=== PATIENT | female | born 1990 | race African-American/Black ===

== ENCOUNTER 2019-05-29 08:00 | Outpatient (CLI) | payer OTHER ==
[2019-05-30 17:54] LABS: CANDIDA GROUP DNA POSITIVE (NEGATIVE); CANDIDA KRUSEI DNA NEGATIVE (NEGATIVE); TRICHOMONAS VAGINALIS DNA NEGATIVE (NEGATIVE)
[2019-05-30 19:03] LABS: TRICHOMONAS VAGINALIS DNA NEGATIVE (NEGATIVE)
== END 2019-05-29 23:59 | disposition home or self-care (01) ==
LOC: LAB.R 08:00
PROVIDERS: ATTEND Obstetrics & Gynecology
DX: Z11.3 Encounter for screening for infections with a predominantly sexual mode of transmission (principal); R10.2 Pelvic and perineal pain
CPT/HCPCS: 87491; 87591; 87661; 87801

== ENCOUNTER 2019-06-21 08:00 | Outpatient (CLI) | payer OTHER | END 2019-06-21 23:59 | disposition home or self-care (01) | LOC: LAB.WCP 08:00 | PROVIDERS: ATTEND Physician Assistant Medical | DX: E05.90 Thyrotoxicosis, unspecified without thyrotoxic crisis or storm (principal) | CPT/HCPCS: 36415; 84443 ==

== ENCOUNTER 2019-08-15 16:46 | Outpatient (CLI) | payer OTHER ==
[2019-08-15 22:17] LABS: CANDIDA GROUP DNA NEGATIVE (NEGATIVE); CANDIDA KRUSEI DNA NEGATIVE (NEGATIVE); TRICHOMONAS VAGINALIS DNA NEGATIVE (NEGATIVE)
== END 2019-08-15 23:59 | disposition home or self-care (01) ==
LOC: LAB.R 16:46
PROVIDERS: ATTEND Obstetrics & Gynecology
DX: B37.3 Candidiasis of vulva and vagina (principal)
CPT/HCPCS: 87661; 87801

== ENCOUNTER 2019-11-06 12:33 | Outpatient (CLI) | payer OTHER ==
[2019-11-06 19:10] LABS: FREE T3 3.97 pg/mL (2.5-3.9)
[2019-11-06 19:11] LABS: THYROID STIMULATING HORMONE 1.08 uIU/mL (0.34-5.60)
[2019-11-06 19:12] LABS: FREE T4 (FREE THYROXINE) 0.68 ng/dL (0.58-1.64)
== END 2019-11-06 23:59 | disposition home or self-care (01) ==
LOC: LAB.WCP 12:33
PROVIDERS: ATTEND Nurse Practitioner
DX: E05.90 Thyrotoxicosis, unspecified without thyrotoxic crisis or storm (principal); R11.0 Nausea
CPT/HCPCS: 36415; 84439; 84443; 84481; 84702

== ENCOUNTER 2020-01-08 13:12 | Outpatient (CLI) | payer OTHER ==
[2020-01-08 18:30] LABS: BASOPHILS % (AUTO) 0.5 %; EOSINOPHILS # (AUTO) 0.1 10^3/uL (0.0-0.7); EOSINOPHILS % (AUTO) 1.7 %; HGB - HEMOGLOBIN 13.6 g/dL (12.0-16.0); MEAN CORPUSCULAR HEMOGLOBIN 29.2 pg (27.0-31.0); MEAN CORPUSCULAR HGB CONC 32.5 g/dL (32.0-36.0); MEAN CORPUSCULAR VOLUME 89.9 fL (81.0-99.0); MEAN PLATELET VOLUME 12.8 fL (7.9-10.8); MONOCYTES # (AUTO) 0.6 10^3/uL (0.0-1.0); MONOCYTES % (AUTO) 10.2 %; NEUTROPHILS # (AUTO) 3.2 10^3/uL (1.5-6.6); NEUTROPHILS % (AUTO) 53.3 %; PLT - PLATELET COUNT 195 10^3/uL (130-450); RED BLOOD COUNT 4.65 10^6/uL (4.20-5.40); RED CELL DISTRIBUTION WIDTH 13.4 % (12.0-15.0)
[2020-01-08 19:37] LABS: THYROID STIMULATING HORMONE 1.01 uIU/mL (0.34-5.60)
[2020-01-08 19:39] LABS: FREE T4 (FREE THYROXINE) 0.68 ng/dL (0.58-1.64)
[2020-01-08 19:40] LABS: FREE T3 3.85 pg/mL (2.5-3.9)
[2020-01-08 19:45] LABS: FERRITIN 79.4 ng/mL (11.0-306.8)
== END 2020-01-08 23:59 | disposition home or self-care (01) ==
LOC: LAB.WCP 13:12
PROVIDERS: ATTEND Physician Assistant Medical
DX: E05.90 Thyrotoxicosis, unspecified without thyrotoxic crisis or storm (principal); R53.83 Other fatigue
CPT/HCPCS: 36415; 82306; 82607; 82728; 84439; 84443; 84481; 85025

== ENCOUNTER 2020-01-18 07:00 | Outpatient (CLI) | payer OTHER ==
[2020-01-18 21:15] LABS: CANDIDA GROUP DNA POSITIVE (NEGATIVE); CANDIDA KRUSEI DNA NEGATIVE (NEGATIVE); TRICHOMONAS VAGINALIS DNA NEGATIVE (NEGATIVE)
[2020-01-18 22:12] LABS: TRICHOMONAS VAGINALIS DNA NEGATIVE (NEGATIVE)
== END 2020-01-18 23:59 | disposition home or self-care (01) ==
LOC: LAB.R 07:00
PROVIDERS: ATTEND Obstetrics & Gynecology
DX: N89.8 Other specified noninflammatory disorders of vagina (principal); R31.9 Hematuria, unspecified; Z11.3 Encounter for screening for infections with a predominantly sexual mode of transmission
CPT/HCPCS: 87086; 87491; 87591; 87661; 87801

== ENCOUNTER 2020-01-23 15:12 | Outpatient (CLI) | payer OTHER ==
--- NOTE | 2020-01-23 16:41 | Ultrasound Report ---
PROCEDURE: Head or Neck Soft Tissue INDICATIONS: HYPERTHYROIDISM TECHNIQUE: Real time scanning was performed of the neck region of interest, with image documentation . COMPARISON: None. FINDINGS: No soft tissue neck abnormality seen bilaterally the right thyroid lobe measures 1.2 x 1. 4 x 4.0 cm and the left measures 1.0 x 1.5 x 5.0 cm. The isthmus measures 3 mm. No thyroid cystic or solid nodules are found. Several lymph nodes are present near the thyroid, normal in size and morphol ogy. IMPRESSION: No thyroid nodules seen, thyroid echotexture is normal. Several scattered adjacent small lymph nodes show no evidence of inflammation or enlargement. Reviewed by: Del Watkins MD on 01/23/2020 4:40 PM PDT Approved by: Del Watkins MD on 01/23/2020 4:40 PM PDT Station ID: [id number]
== END 2020-01-23 15:13 | disposition home or self-care (01) ==
LOC: DI 15:12
PROVIDERS: ATTEND Physician Assistant Medical
DX: E05.90 Thyrotoxicosis, unspecified without thyrotoxic crisis or storm (principal)
CPT/HCPCS: 76536

== ENCOUNTER 2020-04-30 08:00 | Outpatient (CLI) | payer OTHER | END 2020-04-30 08:01 | disposition home or self-care (01) | LOC: LAB.WCP 08:00 | PROVIDERS: ATTEND Physician Assistant Medical | DX: E55.9 Vitamin D deficiency, unspecified (principal) | CPT/HCPCS: 36415; 82306 ==

== ENCOUNTER 2020-06-11 08:00 | Outpatient (CLI) | payer OTHER ==
[2020-06-11 21:48] LABS: CHLAMYDIA TRACHOMATIS DNA NEGATIVE (NEGATIVE); NEISSERIA GONORRHOEAE DNA NEGATIVE (NEGATIVE); TRICHOMONAS VAGINALIS DNA NEGATIVE (NEGATIVE)
[2020-06-12 13:26] LABS: HIV AG/AB 4TH GEN NON-REACTIVE (NON-REACTIVE)
== END 2020-06-11 23:59 | disposition home or self-care (01) ==
LOC: LAB.WCP 08:00
PROVIDERS: ATTEND Family Medicine
DX: Z20.2 Contact with and (suspected) exposure to infections with a predominantly sexual mode of transmission (principal)
CPT/HCPCS: 36415; 87389; 87491; 87591; 87661

== ENCOUNTER 2020-08-01 16:46 | Outpatient (CLI) | payer OTHER ==
--- NOTE | 2020-08-01 17:48 | XRAY Report ---
PROCEDURE: Knee 3 View RT INDICATIONS: KNEE JOINT PAIN, RIGHT TECHNIQUE: 3 views of the right knee(s) were acquired. COMPARISON: None. FINDINGS: Bones: No fractures or dislocations. No suspicious bony lesions. Soft tissues: No joint effusion. No suspicious soft tissue calcifications. IMPRESSION: No acute fracture. No osseous lesion. If symptoms and/or clinical suspicion for patholog y continue, further assessment with repeat plain films, or advanced imaging (e.g., CT, MRI, or bone s can) is recommended for further assessment. Reviewed by: Lex Nelson MD on 08/01/2020 5:47 PM PDT Approved by: Lex Nelson MD on 08/01/2020 5:47 PM PDT Station ID: [id number]
== END 2020-08-01 23:59 | disposition home or self-care (01) ==
LOC: DI.N 16:46
PROVIDERS: ATTEND Family Medicine
DX: M25.561 Pain in right knee (principal)

== ENCOUNTER 2020-10-05 21:50 | Emergency (ER) | payer OTHER ==
[2020-10-05 22:22] LABS: BASOPHILS % (AUTO) 0.1 %; EOSINOPHILS # (AUTO) 0.2 10^3/uL (0.0-0.7); HCT - HEMATOCRIT 40.4 % (37.0-47.0); HGB - HEMOGLOBIN 13.7 g/dL (12.0-16.0); LYMPHOCYTES # (AUTO) 2.5 10^3/uL (1.5-3.5); MEAN CORPUSCULAR HEMOGLOBIN 29.9 pg (27.0-31.0); MEAN CORPUSCULAR HGB CONC 33.9 g/dL (32.0-36.0); MEAN CORPUSCULAR VOLUME 88.2 fL (81.0-99.0); MEAN PLATELET VOLUME 12.1 fL (7.9-10.8); MONOCYTES # (AUTO) 0.5 10^3/uL (0.0-1.0); MONOCYTES % (AUTO) 6.8 %; NEUTROPHILS # (AUTO) 4.8 10^3/uL (1.5-6.6); NEUTROPHILS % (AUTO) 59.8 %; PLT - PLATELET COUNT 207 10^3/uL (130-450); RED BLOOD COUNT 4.58 10^6/uL (4.20-5.40); RED CELL DISTRIBUTION WIDTH 12.4 % (12.0-15.0)
[2020-10-05 22:29] LABS: BILIRUBIN,URINE NEGATIVE (NEGATIVE); GLUCOSE, URINE (UA) NEGATIVE (NEGATIVE); KETONES,URINE (UA) NEGATIVE (NEGATIVE); LEUKOCYTE ESTERASE, URINE NEGATIVE (NEGATIVE); NITRITE,URINE NEGATIVE (NEGATIVE); OCCULT BLOOD,URINE SMALL (NEGATIVE); PROTEIN,URINE NEGATIVE (NEGATIVE); UROBILINOGEN,URINE 0.2 (NORMAL) E.U./dL (NORMAL)
[2020-10-05 22:30] LABS: CLARITY,URINE CLEAR (CLEAR)
[2020-10-05 22:31] LABS: HCG UR QUAL NEGATIVE
[2020-10-05 22:36] LABS: ALBUMIN 4.5 g/dL (3.2-5.5); ALBUMIN/GLOBULIN RATIO 1.2 (1.0-2.2); BILIRUBIN,TOTAL 0.8 mg/dL (0.2-1.0); CALCIUM 9.3 mg/dL (8.5-10.3); CREATININE 0.7 mg/dL (0.4-1.0); POTASSIUM 3.4 mmol/L (3.5-5.0); TOTAL PROTEIN 8.3 g/dL (6.7-8.2)
[2020-10-05 22:43] LABS: SQUAMOUS EPITHELIAL CELL,UR FEW Squamous (<= Few); WBC,URINE 0-3 /HPF (0-5)
[2020-10-05 22:44] LABS: AMORPHOUS SEDIMENT,UR Few /LPF; BACTERIA,URINE Few /HPF (None Seen); MUCUS,URINE Few Strands
[2020-10-05] MEDS ORDERED: KETOROLAC 30 MG/ML VIAL IVP STA (23:05)
--- NOTE | 2020-10-05 23:08 | ED Physician Documentation ---
PD HPI FEMALE - Stated complaint Stated Complaint: LOW ABD PX - Chief complaint Chief Complaint: Abd Pain - History obtained from History obtained from: Patient - History of Present Illness Timing - onset: Last night Timing - duration: Days (1) Timing - details: Abrupt onset, Still present Pain level max: 10 Pain level max: 7 Associated symptoms: Pelvic pain, Vaginal bleeding. No: Vaginal discharge, Dysuria, Urinary frequency, Hematuria Contributing factors: control (explanon) OB-BUSINESS ANALYTICS MANAGER History: Ovarian cysts, Other (endometriosis) Similar symptoms before: Diagnosis (ovarian cyst) Recently seen: Not recently seen - Additional information Additional information: Previous well 30-year-old female with a history of endometriosis and ovarian cyst is on Nexplanon and she has developed left lower quadrant abdominal pain that she feels is similar to what she is had previously with a ovarian cyst. She denies any nausea vomiting fever or diarrhea. She has had some mild constipation and had a bowel movement today. She has pain with movement and had a peak in her pain last night when this started. Started rather abruptly and has persisted.She noted some scant bleeding last night she is not having bleeding now.She has not been otherwise ill. Review of Systems Constitutional: denies: Fever Eyes: denies: Decreased vision Ears: denies: Ear pain Nose: denies: Congestion Throat: denies: Sore throat Cardiac: denies: Chest pain / pressure, Palpitations Respiratory: denies: Dyspnea, Cough GI: reports: Abdominal Pain, Constipation. denies: Nausea, Vomiting, Diarrhea : denies: Dysuria, Frequency, Discharge Skin: denies: Rash Musculoskeletal: denies: Neck pain, Back pain, Extremity pain Neurologic: denies: Generalized weakness, Focal weakness, Numbness PD PAST MEDICAL HISTORY - Present Medications Home Medications: Ambulatory Orders Medication Instructions Recorded Confirmed Oxycodone HCl/Acetaminophen 1 - 2 each PO Q6H PRN #14 tablet 10/06/20 [Percocet 5-325 mg Tablet] - Allergies Allergies/Adverse Reactions: Allergies Allergy/AdvReac Type Severity Reaction Status Date / Time acetaminophen [From Vicodin] Allergy Respiratory Verified 10/05/20 22:00 amoxicillin Allergy Respiratory Verified 10/05/20 21:59 hydrocodone [From Vicodin] Allergy Respiratory Verified 10/05/20 22:00 tramadol Allergy Respiratory Verified 10/05/20 21:59 PD ED PE NORMAL - Vitals Vital signs reviewed: Yes (Normal) - General General: Alert and oriented X 3, No acute distress, Well developed/nourished, Other (The patient moves slowly.) - HEENT HEENT: Atraumatic, PERRL, EOMI - Neck Neck: Supple, no meningeal sign, No bony TTP - Cardiac Cardiac: RRR, No murmur - Respiratory Respiratory: No respiratory distress, Clear bilaterally - Abdomen Abdomen: Normal bowel sounds, Soft, Non distended, No organomegaly, Other (There is left lower quadrant suprapubic tenderness and not to the left paracolic gutter.) - Back Back: No CVA TTP, No spinal TTP - Derm Derm: Normal color, Warm and dry, No rash - Extremities Extremities: No deformity, No edema - Neuro Neuro: Alert and oriented X 3, data integration architect 2-12 intact, No motor deficit, No sensory deficit, Normal speech Eye Opening: Spontaneous Motor: Obeys Commands Verbal: Oriented GCS Score: 15 - Psych Psych: Normal mood, Normal affect Results - Vitals Vitals: Vital Signs - 24 hr 10/05/20 10/06/20 10/06/20 21:55 01:11 01:48 Temperature 36.1 C L Heart Rate 81 65 69 Respiratory 16 18 16 Rate Blood Pressure 127/80 124/70 130/71 O2 Saturation 100 98 98 10/06/20 10/06/20 10/06/20 02:25 02:55 03:50 Temperature 36.5 C 36.8 C Heart Rate 74 62 73 Respiratory 16 16 16 Rate Blood Pressure 134/86 H 120/70 108/67 O2 Saturation 97 98 98 Oxygen O2 Source Room air - Labs Labs: Laboratory Tests 10/05/20 10/05/20 10/05/20 22:07 22:07 22:16 WBC 8.0 RBC 4.58 Hgb 13.7 Hct 40.4 MCV 88.2 MCH 29.9 MCHC 33.9 RDW 12.4 Plt Count 207 MPV 12.1 H Neut # (Auto) 4.8 Lymph # (Auto) 2.5 [place] # (Auto) 0.5 Eos # (Auto) 0.2 Baso # (Auto) 0.0 Absolute Nucleated RBC 0.00 Nucleated RBC % 0.0 Sodium Potassium Chloride Carbon Dioxide Anion Gap BUN Creatinine Estimated GFR (MDRD) Glucose Calcium Total Bilirubin AST ALT Alkaline Phosphatase Total Protein Albumin Globulin Albumin/Globulin Ratio Lipase Urine Color YELLOW Urine Clarity CLEAR Urine pH 7.0 Ur Specific [place] 1.020 Urine Protein NEGATIVE Urine Glucose (UA) NEGATIVE Urine Ketones NEGATIVE Urine Occult Blood SMALL H Urine Nitrite NEGATIVE Urine Bilirubin NEGATIVE Urine Urobilinogen 0.2 (NORMAL) Ur Leukocyte Esterase NEGATIVE Urine RBC 6-10 H Urine WBC 0-3 Ur Squamous Epith Cells FEW Squamous Amorphous Sediment Few Urine Bacteria Few Urine Mucus Few Strands Ur Microscopic Review INDICATED Urine Culture Comments NOT INDICATED Urine HCG, Qual NEGATIVE 10/05/20 22:16 WBC RBC Hgb Hct MCV MCH MCHC RDW Plt Count MPV Neut # (Auto) Lymph # (Auto) [place] # (Auto) Eos # (Auto) Baso # (Auto) Absolute Nucleated RBC Nucleated RBC % Sodium 141 Potassium 3.4 L Chloride 105 Carbon Dioxide 27 Anion Gap 9.0 BUN 8 Creatinine 0.7 Estimated GFR (MDRD) 118 Glucose 138 H Calcium 9.3 Total Bilirubin 0.8 AST 22 ALT 29 Alkaline Phosphatase 104 Total Protein 8.3 H Albumin 4.5 Globulin 3.8 Albumin/Globulin Ratio 1.2 Lipase 29 Urine Color Urine Clarity Urine pH Ur Specific [place] Urine Protein Urine Glucose (UA) Urine Ketones Urine Occult Blood Urine Nitrite Urine Bilirubin Urine Urobilinogen Ur Leukocyte Esterase Urine RBC Urine WBC Ur Squamous Epith Cells Amorphous Sediment Urine Bacteria Urine Mucus Ur Microscopic Review Urine Culture Comments Urine HCG, Qual - Rads (name of study) pelvic u/s Radiology: Prelim report reviewed (Impression: Normal-appearing left ovary, without torsion. A small amount of free fluid can be seen adjacent to the left ovary, which is likely within physiologic limits.), EMP read indepedently, See rad report CT abdomen pelvis with Radiology: Prelim report reviewed (Impression: 1. No acute abnormality identified within the pelvis or abdomen.), EMP read indepedently, See rad report PD MEDICAL DECISION MAKING - ED course Complexity details: reviewed results, re-evaluated patient, considered differential, d/w patient ED course: 30-year-old female with a prior history of ovarian cyst has pain in the left suprapubic area consistent with what she is had previously and likely has a cyst. I did not think that the patient had evidence to consider CAT scanning for diverticulitis. She has normal white blood cell count her pain is well localized to the suprapubic area on the left side. The patient is administered Toradol 15 mg intravenously and a pelvic ultrasound is undertaken. The pelvic ultrasound is unremarkable the patient gets no relief with the Toradol and she is reexamined. She does have tenderness now higher in her abdomen and a CT scan of the abdomen pelvis is obtained which is again unremarkable. She is administered some Dilaudid prior to the scan and she has marked improvement in her pain. She does have have an allergy to hydrocodone but she can take oxycodone.She has a history of endometriosis and she has a painful episode tonight this is consistent with the possibility of an exacerbation of endometriosis. Departure - Departure Disposition: 01 Home, Self Care Clinical Impression: Endometriosis Condition: Stable Instructions: ED Endometriosis Follow-Up: DONTE Lomeli [Provider Group] Prescriptions: Oxycodone HCl/Acetaminophen [Percocet 5-325 mg Tablet] 1 - 2 each PO Q6H PRN #14 tablet PRN Reason: pain Discharge Date/Time: 10/06/20 03:50
--- NOTE | 2020-10-06 00:45 | Ultrasound Report ---
PROCEDURE: Pelvic w/Transvag+Doppler Ltd INDICATIONS: LLQ pain hx cyst TECHNIQUE: Real-time scanning was performed of the pelvic organs, with image documentation. Additional endovagi nal scanning was necessary due to incomplete visualization of the adnexal and endometrial structures by transabdominal scanning. COMPARISON: None. FINDINGS: A small amount of fluid can be seen adjacent to the left ovary, which is likely within physiologic li mits Uterus: Uterus is normal in size at 7.4 x 3.7 x 3.3 cm. The endometrium measures up to 10 mm in com bined thickness within the lower uterine segment. Ovaries: The right ovary is surgically absent. The left ovary measures 3.3 x 2.1 x 3.4 cm. A normal- appearing arterial waveform is confirmed to the left ovary. The left ovary demonstrates an unremarkab le appearance. IMPRESSION: Normal-appearing left ovary, without torsion. A small amount of fluid can be seen adjacent to the left ovary, which is likely within physiologic li mits. Reviewed by: Ezequiel Figueroa MD on 10/05/2020 11:44 PM MIKAELA Approved by: Ezequiel Figueroa MD on 10/05/2020 11:44 PM MIKAELA Station ID: [id number]
[2020-10-06] MEDS ORDERED: HYDROmorphone 1 MG/ML CARPUJECT IVP STA (01:42)
[2020-10-06] MEDS ORDERED: ONDANSETRON 4 MG/2 ML VIAL IVP STA (01:42)
[2020-10-06] MEDS ORDERED: IOVERSOL 320 100 ML VIAL IVP ONE ×2 (01:50→03:01)
[2020-10-06] MEDS ORDERED: oxyCODONE/ACET 5/325 Prepack 4 PO STA (03:21)
[2020-10-06 04:09] VITALS: BP 108/67
--- NOTE | 2020-10-06 07:43 | CT Report ---
PROCEDURE: Abdomen/Pelvis W INDICATIONS: LLQ pain CONTRAST: IV CONTRAST: Optiray 320 ml: 100 PO CONTRAST: *NO PO CONTRAST TECHNIQUE: After the administration of intravenous contrast, 5 mm thick sections acquired from the diaphragms to the symphysis. 5 mm thick coronal and sagittal reformats were acquired. For radiation dose reducti on, the following was used: automated exposure control, adjustment of mA and/or kV according to shayne ent size. COMPARISON: None. FINDINGS: Image quality: Excellent. ABDOMEN: Lung bases: Lung bases are clear. Heart size is normal. Solid organs: Liver and spleen are normal in size and enhancement. Gallbladder has been removed. B iliary system is non dilated. Pancreas enhances normally. No adrenal nodules. Kidneys demonstrate normal size and enhancement, without hydronephrosis. Peritoneum and bowel: Bowel loops demonstrate normal wall thickness and caliber. No free fluid or a ir. Nodes and vessels: No retroperitoneal or mesenteric adenopathy by size criteria. Aorta and inferior vena cava are normal in size. Miscellaneous: No ventral hernias. PELVIS: Genitourinary: Bladder wall thickness is normal. Miscellaneous: No inguinal hernias or adenopathy. Bones: No suspicious bony lesions. No vertebral body compression fractures. IMPRESSION: No acute finding or other abnormality to explain abdominal pain. Reviewed by: Lj Burnette MD on 10/06/2020 7:42 AM PDT Approved by: Lj Burnette MD on 10/06/2020 7:42 AM PDT Station ID: [id number]
== END 2020-10-06 03:50 | disposition home or self-care (01) ==
LOC: ED 21:50
DX: N80.9 Endometriosis, unspecified (principal)
CPT/HCPCS: 36415; 74177; 76830; 76856; 80053; 81001; 81025; 83690; 85025; 93976; 96374; 96375; 99283; 99284; J1170; Q9967; 81003; 87086

== ENCOUNTER 2020-10-30 08:00 | Outpatient (CLI) | payer OTHER ==
[2020-10-30 22:39] LABS: BACTERIAL VAGINOSIS DNA NEGATIVE (NEGATIVE); CANDIDA GLABRATA DNA NEGATIVE (NEGATIVE); CANDIDA GROUP DNA POSITIVE (NEGATIVE); CANDIDA KRUSEI DNA NEGATIVE (NEGATIVE); TRICHOMONAS VAGINALIS DNA NEGATIVE (NEGATIVE)
[2020-10-30 23:35] LABS: CHLAMYDIA TRACHOMATIS DNA NEGATIVE (NEGATIVE); NEISSERIA GONORRHOEAE DNA NEGATIVE (NEGATIVE); TRICHOMONAS VAGINALIS DNA NEGATIVE (NEGATIVE)
== END 2020-10-30 23:59 | disposition home or self-care (01) ==
LOC: LAB.R 08:00
PROVIDERS: ATTEND Obstetrics & Gynecology
DX: R10.2 Pelvic and perineal pain (principal); N89.8 Other specified noninflammatory disorders of vagina
CPT/HCPCS: 87491; 87591; 87661; 87801

== ENCOUNTER 2020-12-23 17:06 | Outpatient (CLI) | payer OTHER ==
--- NOTE | 2020-12-24 08:35 | Ultrasound Report ---
PROCEDURE: Pelvic Complete INDICATIONS: PELVIC PAIN TECHNIQUE: Real-time transabdominal scanning was performed of the pelvic organs, with image documentation. COMPARISON: Ultrasound dated 10/05/2020 FINDINGS: Uterus: Uterus is normal in size at 6.9 x 4.1 x 2.2 cm. Endometrium measures 4.3 mm in combined thi ckness. Ovaries: Right ovary surgically absent. Left ovary measures 3.3 x 1.6 x 3.5 cm. Dominant physiologic follicle measuring 1.4 cm. Other: No free pelvic fluid. IMPRESSION: Right ovary surgically absent otherwise negative examination as above. Reviewed by: Ramesh Mcclure MD on 12/24/2020 8:33 AM PDT Approved by: Ramesh Mcclure MD on 12/24/2020 8:33 AM PDT Station ID: [id number]
--- NOTE | 2020-12-24 10:45 | Ultrasound Report ---
PROCEDURE: Transvaginal INDICATIONS: PELVIC PAIN TECHNIQUE: Real-time transvaginal scanning was performed of the pelvic organs with image documentatio n. FINDINGS: Please see report for complete pelvis ultrasound dated same day. Reviewed by: Ramesh Mcclure MD on 12/24/2020 10:44 AM PDT Approved by: Ramesh Mcclure MD on 12/24/2020 10:44 AM PDT Station ID: [id number]
== END 2020-12-23 17:07 | disposition home or self-care (01) ==
LOC: DI 17:06
PROVIDERS: ATTEND Obstetrics & Gynecology
DX: R10.2 Pelvic and perineal pain (principal); N80.9 Endometriosis, unspecified; Z90.721 Acquired absence of ovaries, unilateral

== ENCOUNTER 2020-12-29 08:00 | Outpatient (CLI) | payer OTHER ==
[2020-12-29 20:43] LABS: BACTERIAL VAGINOSIS DNA NEGATIVE (NEGATIVE); CANDIDA GLABRATA DNA NEGATIVE (NEGATIVE); CANDIDA GROUP DNA NEGATIVE (NEGATIVE); CANDIDA KRUSEI DNA NEGATIVE (NEGATIVE); TRICHOMONAS VAGINALIS DNA NEGATIVE (NEGATIVE)
[2020-12-29 21:50] LABS: CHLAMYDIA TRACHOMATIS DNA NEGATIVE (NEGATIVE); NEISSERIA GONORRHOEAE DNA NEGATIVE (NEGATIVE); TRICHOMONAS VAGINALIS DNA NEGATIVE (NEGATIVE)
== END 2020-12-29 23:59 | disposition home or self-care (01) ==
LOC: LAB.WC 08:00
PROVIDERS: ATTEND Obstetrics & Gynecology
DX: N76.0 Acute vaginitis (principal); R10.2 Pelvic and perineal pain
CPT/HCPCS: 87491; 87591; 87661; 87801

== ENCOUNTER 2021-01-07 11:00 | Outpatient (CLI) | payer OTHER ==
[2021-01-07 18:34] LABS: ALBUMIN 4.3 g/dL (3.2-5.5); ALBUMIN/GLOBULIN RATIO 1.2 (1.0-2.2); BILIRUBIN,TOTAL 0.6 mg/dL (0.2-1.0); CALCIUM 8.9 mg/dL (8.5-10.3); CREATININE 0.7 mg/dL (0.4-1.0); POTASSIUM 3.8 mmol/L (3.5-5.0); TOTAL PROTEIN 7.8 g/dL (6.7-8.2)
[2021-01-07 18:40] LABS: BASOPHILS % (AUTO) 0.4 %; EOSINOPHILS # (AUTO) 0.1 10^3/uL (0.0-0.7); EOSINOPHILS % (AUTO) 1.2 %; HCT - HEMATOCRIT 41.8 % (37.0-47.0); HGB - HEMOGLOBIN 13.5 g/dL (12.0-16.0); LYMPHOCYTES % (AUTO) 29.9 %; MEAN CORPUSCULAR HEMOGLOBIN 29.3 pg (27.0-31.0); MEAN CORPUSCULAR HGB CONC 32.3 g/dL (32.0-36.0); MEAN CORPUSCULAR VOLUME 90.9 fL (81.0-99.0); MEAN PLATELET VOLUME 13.2 fL (7.9-10.8); MONOCYTES # (AUTO) 0.5 10^3/uL (0.0-1.0); MONOCYTES % (AUTO) 7.3 %; NEUTROPHILS # (AUTO) 4.2 10^3/uL (1.5-6.6); NEUTROPHILS % (AUTO) 60.9 %; PLT - PLATELET COUNT 186 10^3/uL (130-450); RED CELL DISTRIBUTION WIDTH 12.9 % (12.0-15.0); WHITE BLOOD COUNT 6.8 x10^3/uL (4.8-10.8)
[2021-01-07 18:46] LABS: THYROID STIMULATING HORMONE 1.4 uIU/mL (0.34-5.60)
[2021-01-07 19:14] LABS: HCG,QUALITATIVE BLOOD NEGATIVE
== END 2021-01-07 23:59 | disposition home or self-care (01) ==
LOC: LAB.WCP 11:00
PROVIDERS: ATTEND Family Medicine
DX: R53.83 Other fatigue (principal)
CPT/HCPCS: 36415; 80053; 84443; 84703; 85025

== ENCOUNTER 2021-02-04 13:15 | Outpatient (CLI) | payer OTHER | END 2021-02-04 23:59 | disposition home or self-care (01) | LOC: LAB.N 13:15 | PROVIDERS: ATTEND Physician Assistant | DX: N30.01 Acute cystitis with hematuria (principal); R39.9 Unspecified symptoms and signs involving the genitourinary system | CPT/HCPCS: 87086; 87181 ==

== ENCOUNTER 2021-04-10 08:16 | Day surgery (SDC) | payer OTHER ==
[2021-04-10] MEDS ORDERED: LACTATED RINGERS 1,000 ML IV ONE (08:18)
[2021-04-10 08:31] LABS: HCG UR QUAL NEGATIVE
[2021-04-10] MEDS ORDERED: PROPOFOL 500 MG/50 ML 500 MG/50 ML VIAL ONE (08:49)
--- NOTE | 2021-04-10 09:00 | ANESTHESIA ---
Pre-Anesthesia VS, & Labs - Diagnosis abnormal bowel habits - Procedure colonoscopy Vital Signs: Temp Pulse Resp BP Pulse Ox 36.4 C L 79 18 126/80 98 04/10/21 08:25 04/10/21 08:25 04/10/21 08:25 04/10/21 08:25 04/10/21 08:25 Height: 5 ft 1 in Weight (kg): 71.5 kg Body Mass Index: 29.7 BMI Classification: Overweight - NPO >8 hours - Is Patient ?: No Home Medications and Allergies Home Medications: Ambulatory Orders Etonogestrel [Nexplanon] 68 mg [id number] DAILY 04/09/21 Etonogestrel [Nexplanon] 68 mg [id number] DAILY 04/09/21 Allergies/Adverse Reactions: Allergies Allergy/AdvReac Type Severity Reaction Status Date / Time acetaminophen [From Vicodin] Allergy Respiratory Verified 10/05/20 22:00 amoxicillin Allergy Respiratory Verified 10/05/20 21:59 hydrocodone [From Vicodin] Allergy Respiratory Verified 10/05/20 22:00 tramadol Allergy Respiratory Verified 10/05/20 21:59 Anes History & Medical History - Anesthetic History Anesthesia Complications: reports: No previous complications - Medical History Cardiovascular: reports: None Pulmonary: reports: None Gastrointestinal: reports: None Urinary: reports: None Neuro: reports: None Musculoskeletal: reports: None Endocrine/Autoimmune: reports: None Blood Disorders: reports: None Skin: reports: None Smoking Status: Never smoker Psychosocial: reports: Anxiety, Cannabis (weekly) History of Cancer?: No - Surgical History General: reports: Cholecystectomy Eyes Ears Nose Throat (EENT): reports: Tonsil/Adenoidectomy Gynecologic: reports: Other (laparoscopy) Exam General: Alert, Oriented x3, Cooperative, No acute distress Dental: WNL Mouth Openin Fingerbreadth Neck Mobility: Normal Mallampati classification: I Thyromental Distance: 4-6 cm Mental/Cognitive Status: Alert/Oriented X3, Normal for patient Plan Anesthesia Type: General, Total IV Consent for Procedure(s) Verified and Reviewed: Yes Code Status: Attempt Resuscitation ASA classification: 1-Healthy patient Is this case an emergency?: No
[2021-04-10] MEDS ORDERED: MIDAZOLAM 2 MG/2 ML VIAL ONE (09:49)
[2021-04-10] MEDS ORDERED: fentaNYL 100 MCG/2 ML VIAL ONE (09:50)
[2021-04-10] MEDS ORDERED: LACTATED RINGERS 400 ML IV ONE (10:33)
[2021-04-10 11:03] VITALS: BP 112/77
--- NOTE | 2021-04-10 13:16 | ANESTHESIA POST OP EVALUATION ---
Anesthesia Post Eval - Post Anesthesia Eval Vitals: Last Vital Signs Temp 36.3 C L 04/10/21 11:01 Pulse 66 04/10/21 11:01 Resp 16 04/10/21 11:01 BP 112/77 04/10/21 11:01 Pulse Ox 99 04/10/21 11:01 CV Function Including HR & BP: Stable Pain Control: Satisfactory Nausea & Vomiting: Negative Mental Status: Baseline Respiratory Status: Airway Patent Hydration Status: Satisfactory Anesthesia Complications: None
== END 2021-04-10 08:17 | disposition home or self-care (01) ==
LOC: SDS 08:16
PROVIDERS: ATTEND Surgery
PROC: 0DBF8ZX Excision of Right Large Intestine, Via Natural or Artificial Opening Endoscopic, Diagnostic (ICD-10-PCS; 2021-04-10)
PROC: 0DBG8ZX Excision of Left Large Intestine, Via Natural or Artificial Opening Endoscopic, Diagnostic (ICD-10-PCS; 2021-04-10)
PROC: 0DBB8ZX Excision of Ileum, Via Natural or Artificial Opening Endoscopic, Diagnostic (ICD-10-PCS; 2021-04-10)
PROC: 0DBK8ZX Excision of Ascending Colon, Via Natural or Artificial Opening Endoscopic, Diagnostic (ICD-10-PCS; principal; 2021-04-10 09:30)
DX: K59.09 Other constipation (principal); D12.2 Benign neoplasm of ascending colon; F41.8 Other specified anxiety disorders
CPT/HCPCS: 45380; 81025; J7120

== ENCOUNTER 2021-04-20 08:00 | Outpatient (CLI) | payer OTHER ==
[2021-04-20 21:09] LABS: BACTERIAL VAGINOSIS DNA POSITIVE (NEGATIVE); CANDIDA GLABRATA DNA NEGATIVE (NEGATIVE); CANDIDA GROUP DNA POSITIVE (NEGATIVE); CANDIDA KRUSEI DNA NEGATIVE (NEGATIVE); TRICHOMONAS VAGINALIS DNA NEGATIVE (NEGATIVE)
== END 2021-04-20 23:59 | disposition home or self-care (01) ==
LOC: LAB.N 08:00
PROVIDERS: ATTEND Family Medicine
DX: N76.0 Acute vaginitis (principal)
CPT/HCPCS: 87661; 87801

== ENCOUNTER 2021-05-18 08:00 | Outpatient (CLI) | payer OTHER | END 2021-05-18 23:59 | LOC: LAB 08:00 | PROVIDERS: ATTEND Family Medicine | DX: U07.1 COVID-19 (principal) ==

== ENCOUNTER 2021-05-28 16:30 | Outpatient (CLI) | payer OTHER ==
[2021-05-28 21:10] LABS: ALBUMIN 4.4 g/dL (3.2-5.5); ALBUMIN/GLOBULIN RATIO 1.3 (1.0-2.2); ALKALINE PHOSPHATASE 80 IU/L (42-121); ALT ALANINE AMINOTRANSFERASE 18 IU/L (10-60); AST ASPARTATE AMINOTRANSFERASE 17 IU/L (10-42); BILIRUBIN,TOTAL 0.6 mg/dL (0.2-1.0); BUN - BLOOD UREA NITROGEN 13 mg/dL (6-20); CALCIUM 9.2 mg/dL (8.5-10.3); CARBON DIOXIDE - CO2 27 mmol/L (21-32); CHLORIDE 104 mmol/L (101-111); CHOL/HDL RATIO 4.7 (<4.4); CHOLESTEROL 202 mg/dL; CREATININE 0.5 mg/dL (0.4-1.0); GFR - MDRD 174 (>89); GLUCOSE 89 mg/dL (70-100); HDL CHOLESTEROL 43 mg/dL; LDL CHOLESTEROL,CALCULATED 134 mg/dL; LDL/HDL RATIO 3.1 (<4.4); POTASSIUM 3.7 mmol/L (3.5-5.0); SODIUM 141 mmol/L (135-145); TOTAL PROTEIN 7.8 g/dL (6.7-8.2); TRIGLYCERIDES 126 mg/dL; VLDL CHOLESTEROL 25 mg/dL
[2021-05-28 21:20] LABS: THYROID STIMULATING HORMONE 1.02 uIU/mL (0.34-5.60)
[2021-05-28 21:25] LABS: PROLACTIN 10.51 ng/mL
== END 2021-05-28 16:31 | disposition home or self-care (01) ==
LOC: LAB.N 16:30
PROVIDERS: ATTEND Nurse Practitioner Family
DX: N64.52 Nipple discharge (principal); Z13.220 Encounter for screening for lipoid disorders; E55.9 Vitamin D deficiency, unspecified; E05.90 Thyrotoxicosis, unspecified without thyrotoxic crisis or storm
CPT/HCPCS: 36415; 80053; 80061; 82306; 83721; 84146; 84443; 84702

== ENCOUNTER 2021-05-29 15:06 | Outpatient (CLI) | payer OTHER ==
[2021-05-29] MEDS ORDERED: IOVERSOL 320 100 ML VIAL IVP ONE ×2 (15:23→15:37)
--- NOTE | 2021-05-29 17:20 | CT Report ---
PROCEDURE: IVP INDICATIONS: URINARY REFLUX CONTRAST: IV CONTRAST: Optiray 320 ml: 140 PO CONTRAST: *NO PO CONTRAST TECHNIQUE: After the administration of oral and intravenous contrast, 5 mm thick sections acquired from the diap hragms to the symphysis. 5 mm thick coronal and sagittal reformats were acquired. For radiation dos e reduction, the following was used: automated exposure control, adjustment of mA and/or kV accordin g to patient size. COMPARISON: October 06, 2020 FINDINGS: Inferior chest: No focal consolidation, pleural effusion, or pneumothorax. No cardiomegaly or perica rdial effusion. Gallbladder: Surgically absent. Biliary tree: No intra-or extrahepatic biliary ductal dilatation. Liver: The liver demonstrates normal enhancement, size, and contour. Hepatic steatosis. Spleen: Normal enhancement, size and morphology is seen. Pancreas: No contour deforming mass or inflammatory change. Adrenals: Normal size without masses. Kidneys/ureters: Normal size and morphology. No solid masses or hydronephrosis. Vasculature: No evidence of aneurysm or other significant vascular pathology. Lymphatic system: No pathologic enlargement by size criteria. GI/mesentery: No evidence of intestinal obstruction. Normal appearance of the appendix. Peritoneum/Retroperitoneum: No free intraperitoneal gas or large collection. Urinary bladder: The urinary bladder is distended with a smooth thin wall. Pelvic organs: No significant abnormality. Bones/soft tissues: No significant abnormality. 4 nonrib-bearing vertebrae. IMPRESSION: 1.No significant abnormality. Reviewed by: Hank Tao MD on 05/29/2021 5:19 PM PST Approved by: Hank aTo MD on 05/29/2021 5:19 PM PST Station ID: [id number]
== END 2021-05-29 15:07 | disposition home or self-care (01) ==
LOC: DI 15:06
PROVIDERS: ATTEND Obstetrics & Gynecology
DX: N13.70 Vesicoureteral-reflux, unspecified (principal)
CPT/HCPCS: 74178; Q9967

== ENCOUNTER 2021-06-11 08:00 | Outpatient (CLI) | payer OTHER ==
[2021-06-12 08:28] LABS: HEPATITIS C ANTIBODY NON-REACTIVE (NON-REACTIVE)
[2021-06-12 14:01] LABS: HIV AG/AB 4TH GEN NON-REACTIVE (NON-REACTIVE)
== END 2021-06-11 23:59 ==
LOC: LAB.N 08:00
PROVIDERS: ATTEND Physician Assistant
DX: S61.432A Puncture wound without foreign body of left hand, initial encounter (principal); W46.1XXA Contact with contaminated hypodermic needle, initial encounter
CPT/HCPCS: 36415; 86704; 86803; 87389

== ENCOUNTER 2021-07-24 08:00 | Outpatient (CLI) | payer OTHER ==
[2021-07-24 22:54] LABS: BACTERIAL VAGINOSIS DNA NEGATIVE (NEGATIVE); CANDIDA GLABRATA DNA NEGATIVE (NEGATIVE); CANDIDA GROUP DNA NEGATIVE (NEGATIVE); CANDIDA KRUSEI DNA NEGATIVE (NEGATIVE); TRICHOMONAS VAGINALIS DNA NEGATIVE (NEGATIVE)
[2021-07-24 23:27] LABS: CHLAMYDIA TRACHOMATIS DNA NEGATIVE (NEGATIVE); NEISSERIA GONORRHOEAE DNA NEGATIVE (NEGATIVE)
== END 2021-07-24 23:59 | disposition home or self-care (01) ==
LOC: LAB.N 08:00
PROVIDERS: ATTEND Physician Assistant
DX: N76.0 Acute vaginitis (principal)
CPT/HCPCS: 81514; 87491; 87591; 87661